=== PATIENT | male | born 1955 | race Caucasian/White ===

== ENCOUNTER 2022-06-08 20:42 | Inpatient (IN) | payer MEDICARE, MEDICAID ==
[~2022-06-08] VITALS: Ht 177.8 cm; Wt 74.5 kg
[~2022-06-08 20:42] MED LIST: CALC667T6 MT; CARV3.1242 PO; DICL100G31 TP; FOLI-43 PO; LACT10SO6 PO; OMEP20CA14 PO; TRAM50TA3 PO
[2022-06-08 23:52] LABS: MEAN CORPUSCULAR HEMOGLOBIN 33.8 pg (28.0-32.0); MEAN CORPUSCULAR VOLUME 100.3 fL (80.0-94.0); MEAN PLATELET VOLUME 8.8 fl (7.4-10.4); PLATELET 194 x1000/uL (130-400); RED BLOOD CELL COUNT 2.02 mill/uL (4.7-6.1); RED CELL DISTRIBUTION WIDTH 17.2 % (11.6-14.6)
[2022-06-09 00:01] LABS: INR 1.2; PROTHROMBIN TIME 12.4 sec (9.6-11.0)
[2022-06-09 00:08] LABS: CHLORIDE 94 mEq/L (98-107)
[2022-06-09 00:23] LABS: HEMATOCRIT. 20.2 % (42.0-52.0); HEMOGLOBIN. 6.8 g/dL (14.0-18.0)
[2022-06-09] MEDS: LACTULOSE 20G/30ML UDC PO SCH ×2 (08:28→17:19)
[2022-06-09 08:50] LABS: NUCLEATED RED BLOOD CELLS 1 /100 WBC; PLATELET ESTIMATE NORMAL
[2022-06-09] MEDS: SEVELAMER CARBONATE 800 MG TABLET PO SCH ×3 (09:23→17:19)
[2022-06-09] MEDS: LOSARTAN POTASSIUM 50 MG TABLET PO SCH ×2 (09:23→21:00)
[2022-06-09] MEDS: AMLODIPINE 10MG TABLET PO SCH (09:23)
[2022-06-09 09:25] LABS: HEMATOCRIT. 23.8 % (42.0-52.0); HEMOGLOBIN. 8.1 g/dL (14.0-18.0); MEAN CORPUSCULAR HEMOGLOBIN 33.1 pg (28.0-32.0); MEAN CORPUSCULAR VOLUME 97.3 fL (80.0-94.0); MEAN PLATELET VOLUME 9.1 fl (7.4-10.4); PLATELET 182 x1000/uL (130-400); RED BLOOD CELL COUNT 2.44 mill/uL (4.7-6.1); RED CELL DISTRIBUTION WIDTH 17.7 % (11.6-14.6)
[2022-06-09 10:35] LABS: PLATELET ESTIMATE NORMAL
[2022-06-09] MEDS ORDERED: CLONIDINE 0.1MG TABLET PO PRN (11:00)
[2022-06-09] MEDS ORDERED: MAGNESIUM/ALUMINUM HYDROXIDE/SIMETHICONE 30ML UDC PO PRN (11:00)
[2022-06-09] MEDS ORDERED: ACETAMINOPHEN 325MG TABLET PO PRN ×2 (11:00)
[2022-06-09] MEDS ORDERED: ONDANSETRON HCL 4MG/2ML INJ IV PRN (11:00)
[2022-06-09] MEDS ORDERED: DIPHENHYDRAMINE 50MG/ML VIAL IV PRN (11:00)
[2022-06-09] MEDS ORDERED: PANTOPRAZOLE SODIUM 40 MG/VIAL IV SCH (11:00)
[2022-06-09] MEDS: PANTOPRAZOLE SODIUM 40 MG/VIAL IV SCH (12:04)
[2022-06-09] MEDS: SODIUM CHLORIDE 0.9% INJ 3ML FLUSH IVF SCH ×2 (14:04→22:00)
[2022-06-09] MEDS ORDERED: NALOXONE HCL 0.4MG/ML VIAL IV PRN (16:15)
[2022-06-09 16:24] LABS: FERRITIN 181 ng/mL (22-322)
[2022-06-09 16:47] LABS: FOLIC ACID (FOLATE) SERUM > 20.00 ng/mL (>5.38); VITAMIN B12 SERUM > 2000.0 pg/mL (211-911)
[2022-06-09 16:54] VITALS: BP 146/65
[2022-06-09 18:40] LABS: HEPATITIS B SURFACE ANTIGEN NEGATIVE
[2022-06-09 20:00] VITALS: BP 107/53
[2022-06-10] VITALS (18 sets, daily range): BP systolic 105–158; BP diastolic 55–100
[2022-06-10] MEDS: TRAMADOL 50MG TABLET PO PRN (04:48)
[2022-06-10] MEDS: SODIUM CHLORIDE 0.9% INJ 3ML FLUSH IVF SCH ×3 (06:00→22:00)
[2022-06-10 07:59] LABS: HEMATOCRIT. 23.6 % (42.0-52.0); HEMOGLOBIN. 8.1 g/dL (14.0-18.0); MEAN CORPUSCULAR HEMOGLOBIN 33.2 pg (28.0-32.0); MEAN CORPUSCULAR VOLUME 96.7 fL (80.0-94.0); MEAN PLATELET VOLUME 9.3 fl (7.4-10.4); PLATELET 162 x1000/uL (130-400); RED BLOOD CELL COUNT 2.44 mill/uL (4.7-6.1)
[2022-06-10] MEDS: AMLODIPINE 10MG TABLET PO SCH (09:00)
[2022-06-10] MEDS: LOSARTAN POTASSIUM 50 MG TABLET PO SCH ×2 (09:00→20:15)
[2022-06-10] MEDS: PANTOPRAZOLE SODIUM 40 MG/VIAL IV SCH (09:00)
[2022-06-10] MEDS: LACTULOSE 20G/30ML UDC PO SCH ×2 (09:00→17:00)
[2022-06-10] MEDS: SEVELAMER CARBONATE 800 MG TABLET PO SCH ×3 (09:03→17:50)
[2022-06-10 17:47] LABS: PLATELET ESTIMATE NORMAL
[2022-06-10] MEDS: DEXT 5%/0.9% NACL 1,000 ML IV SCH (23:46)
[2022-06-11] VITALS: BP 130/56
[2022-06-11 03:58] LABS: BASOPHILS % 1.3 % (0.0-2.0); EOSINOPHILS % 5.5 % (0.0-5.0); HEMATOCRIT. 23.5 % (42.0-52.0); HEMOGLOBIN. 8.1 g/dL (14.0-18.0); LYMPHOCYTES % 34.8 % (20.0-50.0); MEAN CORPUSCULAR HEMOGLOBIN 33.2 pg (28.0-32.0); MEAN CORPUSCULAR VOLUME 96.2 fL (80.0-94.0); MEAN PLATELET VOLUME 8.9 fl (7.4-10.4); MONOCYTES % 15.7 % (2.0-8.0); NEUTROPHILS % 42.7 % (40.0-76.0); PLATELET 154 x1000/uL (130-400); RED BLOOD CELL COUNT 2.45 mill/uL (4.7-6.1); RED CELL DISTRIBUTION WIDTH 16.8 % (11.6-14.6)
[2022-06-11 04:00] VITALS: BP 133/74
[2022-06-11 04:03] LABS: INR 1.2; PROTHROMBIN TIME 12.6 sec (9.6-11.0)
[2022-06-11] MEDS: SODIUM CHLORIDE 0.9% INJ 3ML FLUSH IVF SCH ×3 (05:50→22:00)
[2022-06-11] MEDS: SEVELAMER CARBONATE 800 MG TABLET PO SCH ×3 (07:50→18:05)
[2022-06-11 08:00] VITALS: BP 156/63
[2022-06-11] MEDS: PANTOPRAZOLE SODIUM 40 MG/VIAL IV SCH (08:56)
[2022-06-11] MEDS: LACTULOSE 20G/30ML UDC PO SCH ×2 (08:57→18:05)
[2022-06-11] MEDS: AMLODIPINE 10MG TABLET PO SCH (08:57)
[2022-06-11] MEDS: LOSARTAN POTASSIUM 50 MG TABLET PO SCH ×2 (08:57→21:00)
[2022-06-11] MEDS ORDERED: LIDOCAINE HCL 1% 10 MG/ML 10ML VIAL ONE (10:17)
[2022-06-11] MEDS ORDERED: FENTANYL CITRATE/PF 50MCG/ML 2ML VIAL ONE (10:18)
[2022-06-11] MEDS ORDERED: PROPOFOL 200MG/20ML VIAL IV ONE (10:18)
[2022-06-11] MEDS ORDERED: GLYCOPYRROLATE 0.2 MG/ML 2ML VIAL ONE (10:18)
[2022-06-11 16:00] VITALS: BP 144/72
[2022-06-11 20:00] VITALS: BP 122/67
[2022-06-11] MEDS: TRAMADOL 50MG TABLET PO PRN (20:35)
[2022-06-12] VITALS (15 sets, daily range): BP systolic 120–145; BP diastolic 55–70
[2022-06-12] MEDS: SODIUM CHLORIDE 0.9% INJ 3ML FLUSH IVF SCH ×2 (06:00→14:57)
[2022-06-12] MEDS: LACTULOSE 20G/30ML UDC PO SCH (08:59)
[2022-06-12] MEDS: AMLODIPINE 10MG TABLET PO SCH (09:00)
[2022-06-12] MEDS: LOSARTAN POTASSIUM 50 MG TABLET PO SCH (09:00)
[2022-06-12] MEDS: SEVELAMER CARBONATE 800 MG TABLET PO SCH ×2 (09:01→12:50)
[2022-06-12] MEDS: PANTOPRAZOLE SODIUM 40 MG/VIAL IV SCH (09:01)
[2022-06-12] MEDS ORDERED: DEXTROSE 50% WATER 50ML SYRINGE IV NR (09:45)
[2022-06-12] MEDS: DEXT 5%/0.9% NACL 1,000 ML IV SCH (10:57)
[2022-06-12] MEDS ORDERED: HEPARIN SODIUM 1,000 UNIT/1ML VIAL IV SCH (12:30)
[2022-06-12] MEDS ORDERED: LACTULOSE ENEMA 1,000ML BOTTLE PR SCH (16:00)
[2022-06-12] MEDS ORDERED: EPOETIN ALFA-EPBX 4,000 UNIT/ML VIAL SUBCUT NR (21:00)
== END 2022-06-12 18:50 | DRG 811 ==
LOC: ER 20:42 → MICUSO 06-09 01:59 → EDBEDREQ 06-09 02:24 → EDBEDREQTM 06-09 02:24 → EDBEDREQDT 06-09 02:24 → EDBEDREQ 06-09 08:22 → 6EST 06-09 16:00 → UNDODISIN 06-11 10:20
PROVIDERS: ADMIT Internal Medicine; ATTEND Internal Medicine
PROC: 30233N1 Transfusion of Nonautologous Red Blood Cells into Peripheral Vein, Percutaneous Approach (ICD-10-PCS; principal; 2022-06-09)
PROC: 0DB78ZX Excision of Stomach, Pylorus, Via Natural or Artificial Opening Endoscopic, Diagnostic (ICD-10-PCS; 2022-06-11)
PROC: 5A1D70Z Performance of Urinary Filtration, Intermittent, Less than 6 Hours Per Day (ICD-10-PCS; 2022-06-12)
DX: D53.9 Nutritional anemia, unspecified (principal); N18.6 End stage renal disease; I12.0 Hypertensive chronic kidney disease with stage 5 chronic kidney disease or end stage renal disease; K70.30 Alcoholic cirrhosis of liver without ascites; K76.82 Hepatic encephalopathy; E88.09 Other disorders of plasma-protein metabolism, not elsewhere classified; Z20.822 Contact with and (suspected) exposure to COVID-19; K29.70 Gastritis, unspecified, without bleeding; K31.89 Other diseases of stomach and duodenum; K59.00 Constipation, unspecified; Z82.49 Family history of ischemic heart disease and other diseases of the circulatory system; Z99.2 Dependence on renal dialysis
CPT/HCPCS: 36415; 71045; 76700; 80048; 80053; 82140; 82270; 82607; 82728; 82746; 82962; 83540; 83550; 85025; 85044; 86803; 86850; 86900; 86920; 87340; 87426; 88305; 90935; 93005; 99285; C9113; J0885; J2704; J3010; J3490; J7042; P9016